=== PATIENT | male | born 1955 | race Hispanic/Latino ===

== ENCOUNTER 2017-10-06 05:11 | Emergency (ER) | payer OTHER ==
[~2017-10-06] VITALS: Ht 182.9 cm; Wt 131.5 kg
[~2017-10-06 05:11] MED LIST: ANDROGEL1.62%; ASPIRIN CHILDRE81 MG PO; BACTRIM DS 8001 TAB PO; CLOPIDOGREL75 MG PO; DEPO-TESTADIOL10 ML IM; DIOVAN 40 MG40 MG PO; FUROSEMIDE20 MG PO; LASIX20 M1 PO; LIDODERM 5% PAT1 PAT TOP; MASON NATURAL325 MG PO; PANTOPRAZOLE SO40 MG PO; PERCOCET 325 MG1 TA2 PO; PERCOCET 5-3251 EACH PO; PRAVASTATIN SOD40 MG PO; PROTONIX 40MG T40 MG PO
--- NOTE | 2017-10-06 05:19 | ED GI/GU/ABDOMINAL COMPLAINT ---
History of Present Illness General Chief Complaint: Abdominal Pain/Flank Pain Stated Complaint: RT SIDE ABD PAIN N/V PER PT SINCE 99 Source: patient Exam Limitations: no limitations Vital Signs & Intake/Output Vital Signs & Intake/Output Vital Signs Date Time Temp Pulse Resp B/P B/P Pulse O2 O2 Flow FiO2 Mean Ox Delivery Rate 10/06 1003 97.8 61 18 121/69 98 Room Air Room Air 10/06 0741 98.4 10/06 0600 96 Room Air 10/06 0518 98.4 75 18 151/99 95 Room Air Allergies Coded Allergies: NO KNOWN ALLERGIES (02/01/15) Reconcile Medications Aspirin (Children's Aspirin) 81 MG TAB.CHEW 1 TAB PO DAILY HEART HEALTH ( Reported) CLOPIDOGREL BISULFATE (Clopidogrel) 75 MG TABLET 1 TAB PO DAILY BLOOD THINNER (Reported) Ferrous Sulfate 325 MG TAB 1 TAB PO BID ANEMIA (Reported) Furosemide (Lasix) 20 MG TABLET 1 TAB PO BID LEG SWELLING (Reported) Pantoprazole Sodium 40 MG TABLET.DR 1 TAB PO DALIY GERD Pravastatin Sodium 40 MG TABLET 1 TAB PO QHS CHOLESTEROL (Reported) Valsartan (Diovan) 40 MG TAB 1 TAB PO DAILY BP (Reported) Triage Nurses Notes Reviewed? yes Onset: Gradual Duration: hour(s):, waxing and waning Timing: recent history Quality/Severity: aching, cramping Location: right lower quadrant Radiation: RLQ Activities at Onset: none Prior Abdominal Problems: similar symptoms Modifying Factors: Worsens With: urinating. Associated Symptoms: abdominal pain, nausea/vomiting HPI: 62 yo gentleman h/o kidney stones, presents with right flank pain radiating to right lower quadrant, associated with sweating, nausea, vomiting, similar to a distant episode of kidney stones. He notes no fever, chills, diarrhea, chest pain, dysuria,hematuria. He is otherwise well. (Rocio BARLOW,Bentley Boyle) Past History Travel History Traveled to [place] past 21 day No Medical History Any Pertinent Medical History? see below for history Neurological: NONE EENT: NONE Cardiovascular: CAD, CHF, hypertension, myocardial infarction, STENT Respiratory: obstructive sleep apnea Gastrointestinal: NONE Hepatic: cholelithiasis Renal: nephrolithiasis Musculoskeletal: R ANKLE FX/SX/HDWE. 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 No (Rocio BARLOW,Bentley Boyle) Review of Systems Review of Systems Constitutional: Reports: no symptoms. EENTM: Reports: no symptoms. Respiratory: Reports: no symptoms. Cardiovascular: Reports: no symptoms. GI: Reports: no symptoms. Genitourinary: Reports: no symptoms. Musculoskeletal: Reports: no symptoms. Skin: Reports: no symptoms. Neurological/Psychological: Reports: no symptoms. Hematologic/Endocrine: Reports: no symptoms. Immunologic/Allergic: Reports: no symptoms. All Other Systems: Reviewed and Negative (Bentley Chan MD) Physical Exam Physical Exam General Appearance: well developed/nourished, mild distress, moderate distress Head: atraumatic, normal appearance Eyes: Bilateral: normal appearance. Ears, Nose, Throat, Mouth: hearing grossly normal, moist mucous membrane Neck: normal inspection, supple, full range of motion Respiratory: normal breath sounds, chest non-tender, no respiratory distress, quiet respiration, lungs clear Cardiovascular: regular rate/rhythm Gastrointestinal: normal bowel sounds, soft, RLQ TENDERNESS TO PALPATION, MILD Back: normal inspection, normal range of motion Extremities: normal range of motion Neurologic/Psych: no motor/sensory deficits, awake, alert, oriented x 3 Comments: Review of Systems - except as otherwise noted in HPI Review of Systems Constitutional:no symptoms. EENTM:no symptoms. Respiratory:no symptoms. Cardiovascular:no symptoms. GI:no symptoms. Genitourinary:no symptoms. Musculoskeletal:no symptoms. Skin:no symptoms. Neurological/Psychological:no symptoms. Hematologic/Endocrine:no symptoms. Immunologic/Allergic:no symptoms. All Other Systems: Reviewed and Negative Physical Exam Physical Exam General Appearance: well developed/nourished, no apparent distress Head: atraumatic, normal appearance Eyes: Bilateral: normal appearance. Ears, Nose, Throat: normal pharynx, normal ENT inspection Neck: normal inspection, supple, full range of motion Respiratory: normal breath sounds, chest non-tender, no respiratory distress, quiet respiration, lungs clear Cardiovascular: regular rate/rhythm Gastrointestinal: normal bowel sounds, soft,no organomegaly, mild rlq tenderness to palpation Back: normal inspection, normal range of motion Extremities: normal inspection, normal capillary refill, normal range of motion, no edema Neurologic/Psych: no motor/sensory deficits, awake, alert, oriented x 3 Skin: intact, normal color, warm/dry Core Measures ACS in differential dx? No Sepsis Present: No Sepsis Focused Exam Completed? No (Rocio BARLOW,Bentley Boyle) Progress Differential Diagnosis: ureterolithiasis, UTI/pyelo, vs other Plan of Care: Orders Procedure Date/time Status Heart Healthy Diet 10/06 L Active TROPONIN LEVEL 10/06 0942 Complete Add-on Test (ER Only) 10/06 0939 Active TROPONIN LEVEL 10/06 0840 Active EKG 10/06 0840 Active CULTURE,URINE 10/06 0528 Active URINALYSIS 10/06 0527 Complete TROPONIN LEVEL 10/06 0519 Complete LIPASE 10/06 0519 Complete HEPATIC FUNCTION PANEL 10/06 05 Complete CBC WITHOUT DIFFERENTIAL 10/06 0419 Complete BASIC METABOLIC PANEL 10/06 05 Complete AMYLASE 10/06 05 Complete EKG 10/06 05 Active Laboratory Tests 10/06/17 0945: Troponin I < 0.01 10/06/17 0540: Anion Gap 16, Estimated GFR > 60, BUN/Creatinine Ratio 15.5, Glucose 119 H, Calcium 9.7, Total Bilirubin 1.1, Direct Bilirubin 0.7 H, AST 44, ALT 28, Alkaline Phosphatase 91, Troponin I < 0.01, Total Protein 8.1, Albumin 4.8, Amylase 111 H, Lipase 409 H, CBC w Diff MAN DIFF ORDERED, RBC 5.33, MCV 86.0, MCH 28.4, MCHC 33.0, RDW 14.8 H, MPV 10.2, Gran % 61.1, Lymphocytes % 26.8, Monocytes % 6.5, Eosinophils % 4.9, Basophils % 0.7, Absolute Granulocytes 5.8, Segmented Neutrophils 61, Absolute Lymphocytes 2.5, Lymphocytes 31, Monocytes 2, Absolute Monocytes 0.6, Eosinophils 4, Absolute Eosinophils 0.5, Basophils 1, Absolute Basophils 0.1, Metamyelocytes 1, Platelet Estimate ADEQUATE, Normocytic RBCs VERIFIED, Normochromic RBCs VERIFIED 10/06/17 0528: Urinalysis MOD H, Urine Color YEL, Urine Clarity CLEAR, Urine pH 6.0, Ur Specific [place] >= 1.030, Urine Protein TRACE H, Urine Ketones NEG, Urine Nitrite NEG, Urine Bilirubin NEG, Urine Urobilinogen 0.2, Ur Leukocyte Esterase NEG, Ur Microscopic SEDIMENT EXAMINED, Urine RBC 1-3, Urine WBC 1-3 H, Ur Epithelial Cells RARE, Hyaline Casts 1-3 H, Granular Casts 1-3 H, Urine Mucus MOD H, Urine Hemoglobin NEG, Urine Glucose NEG Microbiology 10/07 527 URINE ROUT: Urine Culture - RECD Diagnostic Imaging: Viewed by Me: CT Scan. Discussed w/RAD: CT Scan. Initial ED EKG: nsr, st seg elevation in v2, v3, q's in v2-v4 Hand-Off Endorsed To: Kyree Nazario DO Endorsed Time: 0700 Pending: EKG, labs (Rocio BARLOW,Bentley Boyle) Departure Departure Disposition: STILL A PATIENT Condition: Stable Clinical Impression Primary Impression: Flank pain Secondary Impressions: Abnormal EKG Referrals: Anna Izquierdo APRN (PCP/Family) Departure Forms: Customer Survey General Discharge Information Comments 10/06/17, 6:20am...pt is chest pain free. abnormal ekg noted, q's and st seg elevation in v2, v3.... 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 he will compare this ekg with prior ekg's in his office. He suggests 2 trops/ekgs. (Rocio BARLOW,Bentley Boyle) Departure Comments 10/06/17 9:42 AM The patient was signed out to me by Dr. Chan. He presented with flank pain and has a CT that shows a 3 mm ureterolithiasis. Currently he has no pain. Incidentally he had an EKG which showed ST segment elevation in the anteroseptal leads. 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 Cardenas who will check his office to review the old tracing to confirm that there are no new changes. We will also repeat troponin and second EKG in the emergency department. Currently he has no pain. 11:[address] Cardenas who agrees with the plan. He will review the EKGs and confirmed there are no acute changes. Serial troponins were negative and the patient never had any chest pain. The patient is completely asymptomatic now will treat with antibiotics. Lots of fluids. He will follow-up with the urologist on Sunday. (Kyree Nazario DO)
[2017-10-06 06:10] LABS: ABSOLUTE BASOPHIL COUNT 0.1 /CUMM (0.0-0.2); ABSOLUTE EOSINOPHIL COUNT 0.5 /CUMM (0.0-0.7); ABSOLUTE GRANULOCYTE CT 5.8 /CUMM (1.4-6.5); ABSOLUTE LYMPH COUNT 2.5 /CUMM (1.2-3.4); ABSOLUTE MONOCYTE COUNT 0.6 /CUMM (0.10-0.60); BASOPHIL % 0.7 % (0.0-2.0); EOSINOPHIL % 4.9 % (0-5); GRANULOCYTE % 61.1 % (42.2-75.2); HEMATOCRIT 45.9 % (42-52); MEAN CORPUSCULAR HGB 28.4 PG (27.0-31.0); MEAN PLATELET VOLUME 10.2 FL (7.4-10.4); PLATELET COUNT 238 /CUMM (130-400); RBC DISTRIBUTION WIDTH 14.8 % (11.5-14.5); RED BLOOD CELL CT 5.33 /CUMM (4.70-6.10); WHITE BLOOD CELL COUNT 9.4 /CUMM (4.8-10.8)
--- NOTE | 2017-10-06 06:42 | RADIOLOGY REPORT ---
EXAMINATION: XR PORTABLE CHEST CLINICAL INFORMATION: Abdominal pain. COMPARISON: Chest x-ray April 12, 2016 TECHNIQUE: Portable frontal view of the chest was obtained. 6:14 AM FINDINGS: Inspiratory effort is low. The chest portable study is apical lordotic. There is pacemaker lead in the right atrium and right ventricle. Allowing for the low inspiratory effort there is no significant pulmonary vascular congestion. Lungs are clear. No pleural effusion. No pneumothorax. IMPRESSION: No acute abnormality the chest.
--- NOTE | 2017-10-06 06:50 | CT SCAN REPORT ---
EXAMINATION: CT ABDOMEN AND PELVIS WITHOUT CONTRAST CLINICAL INFORMATION: Right flank pain. COMPARISON: CT scan abdomen pelvis June 22, 2014 TECHNIQUE: Multidetector volumetric imaging was performed from the superior aspect of the liver through the pubic symphysis. Sagittal and coronal reformatted images were obtained on the technologist's workstation. DLP: 1575.97 mGy-cm FINDINGS: LUNG BASES: Pacemaker leads in the right atrium and the right ventricle. Lung bases are clear. LIVER, GALLBLADDER, AND BILIARY TREE: The liver is normal in size, shape, and attenuation. No focal hepatic lesion or biliary ductal dilatation is present. Status post cholecystectomy. PANCREAS: Unremarkable. SPLEEN: Unremarkable. ADRENAL GLANDS: Unremarkable. KIDNEYS AND URETERS: There is a 3 mm stone at the right bladder trigone, axial image 96 (2). This has passed or is passing through the right UVJ. There is no significant hydronephrosis. No dilatation of the right collecting system. No additional stone of the right kidney. The left kidney and ureter are normal. BLADDER: Unremarkable. GASTROINTESTINAL TRACT: The small and large bowel are unremarkable. The appendix is not visualized. There is no inflammation of the mesentery. ABDOMINAL WALL: Small bilateral fat-containing inguinal hernias. LYMPH NODES: Normal. VASCULAR: Unremarkable. PELVIC VISCERA: Unremarkable. OSSEOUS STRUCTURES: Unremarkable. IMPRESSION: 3 mm stone in the base of the bladder at the right bladder trigone. This stone has passed or is passing through the right UVJ. There is no significant dilatation, no hydronephrosis, of the right collecting system.
[2017-10-06] MEDS ORDERED: PERCOCET 5-3251 EACH PO (11:45)
[2017-10-06] MEDS ORDERED: CIPRO500 M1 PO (11:45)
[2017-10-06 12:06] VITALS: BP 124/78
== END 2017-10-06 12:07 ==
LOC: ERH 05:11
PROVIDERS: Pediatrics
DX: R10.9 Unspecified abdominal pain (principal); R94.31 Abnormal electrocardiogram [ECG] [EKG]; R11.2 Nausea with vomiting, unspecified; I10 Essential (primary) hypertension; I50.9 Heart failure, unspecified; Z87.891 Personal history of nicotine dependence
CPT/HCPCS: 71045; 74176; 81001; 87086; 93005; 93010; 96361; 96374; 96375; J0131; J1885; J2405

== ENCOUNTER 2017-10-15 19:51 | Emergency (ER) | payer OTHER ==
[~2017-10-15] VITALS: Ht 180.3 cm; Wt 136.1 kg
[~2017-10-15 19:51] MED LIST changes: +CIPRO500 M1 PO
[2017-10-15 19:59] VITALS: BP 147/87
== END 2017-10-15 20:50 | disposition admitted as inpatient to this hospital (09) ==
LOC: ERH 19:51
DX: Z48.00 Encounter for change or removal of nonsurgical wound dressing (principal)